=== PATIENT | male | born 1970 | race Caucasian/White ===

== ENCOUNTER 2021-08-11 14:15 | Emergency (ER) | payer OTHER ==
[2021-08-11 15:39] LABS: RED BLOOD COUNT 4.5 M/UL (4.20-5.50); WHITE BLOOD COUNT 9.1 K/UL (4.5-11.0)
[2021-08-11 15:59] LABS: BUN/CREATININE RATIO 12 (0-10)
[2021-08-11] MEDS ORDERED: CEPHALEXIN500 MG PO (17:34)
[2021-08-11] MEDS ORDERED: AUGMENTIN 875-1 EACH PO (17:43)
== END 2021-08-11 17:46 | disposition home or self-care (01) ==
LOC: ER1 14:15
PROVIDERS: Nurse Practitioner
DX: R04.0 Epistaxis (principal); Z79.82 Long term (current) use of aspirin; F17.200 Nicotine dependence, unspecified, uncomplicated; I10 Essential (primary) hypertension; I25.2 Old myocardial infarction
CPT/HCPCS: 30903; 80053; 85025; 85610; 85730; 99283